=== PATIENT | male | born 1965 | race American Indian/Alaskan Native ===

== ENCOUNTER → 2018-12-09 | Outpatient (CLI) | payer OTHER ==
--- NOTE | 2018-12-14 15:30 | SLEEPHOME ---
DATE OF PROCEDURE: 12/09/2018 ORDERING PROVIDER: Dr. Garcia Diagnostic home sleep testing was performed due to concern for the obstructive sleep apnea syndrome and testing for an oral appliance. For testing, nocturnal T3 respiratory monitoring device was used. Continuous record was made of pulse, oxygen saturation, airflow, chest and abdominal strain and body position. 10 hours and 59 minutes of data were reviewed. There were 7 hours and 58 minutes marked as time in bed. During the interval marked time in bed, there were 47 respiratory events identified of 10 seconds in duration or greater for a respiratory event index of 5.9. The events were obstructive. Baseline pulse rate 60 beats per minute, pulse rate ranged from 51-127. Baseline saturation was 93.4%. Saturations fell as low as 87%. The oxygen desaturation index was 4.1. Testing was performed in both the supine and nonsupine positions. IMPRESSION: 1. Abnormal home sleep testing with repetitive respiratory events and oxygen desaturations to 87% with a respiratory event index of 5.9 despite the use of an oral appliance was consistent with obstructive sleep apnea syndrome. RECOMMENDATIONS: As the patient continues to display significant obstructive respiratory events despite the use of an oral appliance, referral back to sleep disorder center for pressure therapy is recommended.
== END ==
LOC: M SLEEP HO 13:05
PROVIDERS: ATTEND Internal Medicine Pulmonary Disease
DX: G47.33 Obstructive sleep apnea (adult) (pediatric) (principal)